=== PATIENT | male | born 2000 | race African-American/Black ===

== ENCOUNTER 2025-04-24 07:43 | Emergency (ER) | payer OTHER ==
[~2025-04-24] VITALS: Ht 170.2 cm; Wt 71.0 kg
[2025-04-24 08:20] VITALS: O2SAT 99
[2025-04-24] MEDS: ACETAMINOPHEN 325MG TABLET PO ONE (09:22)
[2025-04-24] MEDS: METOCLOPRAMIDE HCL 10MG TABLET PO ONE (09:22)
[2025-04-24] MEDS: KETOROLAC 30MG/ML VIAL IM ONE (09:23)
[2025-04-24 09:56] VITALS: BP 142/86; PULSE 96; RESP 12; TEMP 37.2; O2SAT 99
== END 2025-04-24 10:00 | disposition home or self-care (01) ==
LOC: ER 07:43
DX: R51.9 Headache, unspecified (principal); D57.3 Sickle-cell trait; Z87.11 Personal history of peptic ulcer disease
CPT/HCPCS: 96372; 99283; J8597; J1885; Z7610